=== PATIENT | male | born 1955 | race African-American/Black ===

== ENCOUNTER 2018-05-16 11:30 | Emergency (ER) | payer MEDICAID ==
[~2018-05-16] VITALS: Ht 190.5 cm; Wt 75.0 kg
[~2018-05-16 11:30] MED LIST: ALBU6.7H9; METH-611; dilaudid
[2018-05-16] MEDS ORDERED: PREDNISONE 20MG TABLET PO STA (17:04)
[2018-05-16] MEDS ORDERED: ALBUTEROL (0.083%) 2.5MG/3ML NEB HHN STA (17:04)
[2018-05-16] MEDS ORDERED: IPRATROPIUM BROMIDE (0.02%) 0.5MG/2.5ML NEB HHN STA (17:04)
[2018-05-16] MEDS ORDERED: TRAMADOL 50MG TABLET PO ONE (17:15)
[2018-05-16 17:41] VITALS: BP 129/78
== END 2018-05-16 17:52 | disposition home or self-care (01) ==
LOC: ER 12:34
DX: J44.1 Chronic obstructive pulmonary disease with (acute) exacerbation (principal); G89.29 Other chronic pain; M19.90 Unspecified osteoarthritis, unspecified site; Z87.828 Personal history of other (healed) physical injury and trauma; Z96.649 Presence of unspecified artificial hip joint
CPT/HCPCS: 71045; 94640; 99283; J7512; J7611

== ENCOUNTER 2019-01-31 23:06 | Emergency (ER) | payer MEDICAID ==
[~2019-01-31] VITALS: Ht 182.9 cm; Wt 73.0 kg
[2019-02-01] MEDS ORDERED: HYDROCODONE/ACETAMINOPHEN 5/325MG TABLET PO STA (03:07)
[2019-02-01 05:05] LABS: CLARITY URINE CLEAR (CLEAR); COLOR URINE YELLOW (YELLOW); KETONES URINE NEGATIVE (NEGATIVE); LEUKOCYTE ESTERASE URINE NEGATIVE (NEGATIVE); NITRITE URINE NEGATIVE (NEGATIVE); OCCULT BLOOD URINE NEGATIVE (NEGATIVE); PH URINE 5.5 (4.5-8.0); PROTEIN URINE NEGATIVE (NEGATIVE); SPECIFIC GRAVITY URINE 1.026 (1.005-1.030)
[2019-02-01] MEDS ORDERED: MORPHINE SULFATE 10 MG/ML CPJ IM ONE (05:15)
[2019-02-01 06:30] VITALS: BP 109/65
== END 2019-02-01 07:39 | disposition home or self-care (01) ==
LOC: ER 23:06
DX: M54.5 Low back pain (principal); M25.559 Pain in unspecified hip; W19.XXXA Unspecified fall, initial encounter; Y93.9 Activity, unspecified; Y92.9 Unspecified place or not applicable
CPT/HCPCS: 72100; 72131; 73522; 81003; 96372; 99283; J2270

== ENCOUNTER 2019-02-21 16:38 | Emergency (ER) | payer MEDICAID ==
[~2019-02-21] VITALS: Ht 172.7 cm; Wt 75.0 kg
[2019-02-21] MEDS ORDERED: ACETAMINOPHEN 325MG TABLET PO ONE (22:00)
[2019-02-21] MEDS ORDERED: KETOROLAC 60MG/2ML VIAL IM ONE (22:00)
[2019-02-21 23:19] LABS: BASOPHILS % 0.3 % (0.0-2.0); EOSINOPHILS % 2.9 % (0.0-5.0); HEMOGLOBIN. 14.1 g/dL (14.0-18.0); LYMPHOCYTES % 37.3 % (20.0-50.0); MEAN CORPUSCULAR HEMOGLOBIN 31.2 pg (28.0-32.0); MEAN CORPUSCULAR VOLUME 93.1 fL (80.0-94.0); MEAN PLATELET VOLUME 9.4 fl (7.4-10.4); MONOCYTES % 10.5 % (2.0-8.0); PLATELET 196 x1000/uL (130-400); RED BLOOD CELL COUNT 4.51 mill/uL (4.7-6.1); RED CELL DISTRIBUTION WIDTH 14.4 % (11.6-14.6)
[2019-02-21 23:20] LABS: CHLORIDE 110 mEq/L (98-107)
[2019-02-21 23:28] LABS: CREATINE KINASE 247 IU/L (39-308)
[2019-02-22] MEDS ORDERED: ALBUTEROL (0.083%) 2.5MG/3ML NEB HHN ONE
[2019-02-22] MEDS ORDERED: ONDANSETRON HCL 4MG/2ML INJ IV ONE (00:15)
[2019-02-22] MEDS ORDERED: OXYCODONE HCL/ACETAMINOPHEN 5/325MG TABLET PO ONE (00:45)
[2019-02-22] MEDS ORDERED: ONDANSETRON 4MG ODT PO ONE ×2 (02:00→17:45)
[2019-02-22] MEDS ORDERED: KETOROLAC 60MG/2ML VIAL IM ONE (10:45)
[2019-02-23] MEDS ORDERED: ONDANSETRON 4MG ODT PO ONE (08:15)
[2019-02-23] MEDS ORDERED: ACETAMINOPHEN 500MG TABLET PO ONE (10:45)
[2019-02-23] MEDS ORDERED: ACETAMINOPHEN 500MG TABLET ONE (10:47)
[2019-02-23] MEDS ORDERED: ALBUTEROL 6.7GM HFA INHALER ORI PRN (19:00)
[2019-02-24] MEDS ORDERED: SODIUM CHLORIDE 0.9% 1,000 ML IV ONE (13:00)
[2019-02-24] MEDS ORDERED: NAPROXEN 375MG TABLET PO ONE (14:15)
[2019-02-25 10:55] VITALS: BP 135/78
== END 2019-02-25 11:00 | disposition home or self-care (01) ==
LOC: ER 16:38
DX: M54.9 Dorsalgia, unspecified (principal); G89.29 Other chronic pain; Z59.0 Homelessness; J45.909 Unspecified asthma, uncomplicated; M19.90 Unspecified osteoarthritis, unspecified site; W01.0XXA Fall on same level from slipping, tripping and stumbling without subsequent striking against object, initial encounter; Y93.F1 Activity, caregiving, bathing; Y92.9 Unspecified place or not applicable; Z98.890 Other specified postprocedural states
CPT/HCPCS: 36415; 72170; 80048; 82550; 82962; 85025; 96372; 96374; 99284; J1885; J2405; J7030; J7611; Q0162